=== PATIENT | female | born 1995 | race African-American/Black ===

== ENCOUNTER 2017-09-09 17:43 | Emergency (ER) | payer OTHER, MEDICAID ==
[~2017-09-09] VITALS: Ht 160 cm; Wt 56.7 kg
[2017-09-09] MEDS ORDERED: PROZAC20 MG PO (17:57)
[2017-09-09 18:46] VITALS: BP 120/85
== END 2017-09-09 18:49 | disposition home or self-care (01) ==
LOC: M.ERS 17:43
DX: G89.18 Other acute postprocedural pain (principal); K08.89 Other specified disorders of teeth and supporting structures; K08.409 Partial loss of teeth, unspecified cause, unspecified class

== ENCOUNTER 2017-12-01 13:03 | Emergency (ER) | payer MEDICAID ==
[~2017-12-01] VITALS: Ht 160 cm; Wt 58.1 kg
[~2017-12-01 13:03] MED LIST: PROZAC20 MG PO
[2017-12-01] MEDS ORDERED: TRILEPTAL150 MG PO (13:19)
[2017-12-01 13:29] LABS: URINE BILIRUBIN NEGATIVE (Negative); URINE BLOOD NEGATIVE (Negative); URINE CLARITY CLEAR; URINE COLOR YELLOW; URINE GLUCOSE-RANDOM NEGATIVE (Negative); URINE KETONES NEGATIVE (Negative); URINE LEUKOCYTES-REFLEX NEGATIVE (Negative); URINE NITRITE-REFLEX NEGATIVE (Negative); URINE PROTEIN TRACE (Negative); URINE SPECIFIC GRAVITY 1.025 (1.005-1.030); URINE UROBILINOGEN 0.2 E.U./dl (0.2-1.0)
[2017-12-01] MEDS ORDERED: FLAGYL500 MG PO (13:54)
[2017-12-01 14:10] VITALS: BP 111/73
== END 2017-12-01 14:10 | disposition home or self-care (01) ==
LOC: M.ERS 13:03
PROVIDERS: Nurse Practitioner Family
DX: Z20.2 Contact with and (suspected) exposure to infections with a predominantly sexual mode of transmission (principal); N76.0 Acute vaginitis; B96.89 Other specified bacterial agents as the cause of diseases classified elsewhere; F32.9 Major depressive disorder, single episode, unspecified; F17.210 Nicotine dependence, cigarettes, uncomplicated

== ENCOUNTER 2018-01-15 16:25 | Emergency (ER) | payer OTHER, MEDICAID ==
[~2018-01-15] VITALS: Ht 165.1 cm; Wt 56.7 kg
[~2018-01-15 16:25] MED LIST changes: +FLAGYL500 MG PO; +TRILEPTAL150 MG PO
[2018-01-15 16:35] VITALS: BP 126/75
[2018-01-15] MEDS ORDERED: TRIAMCINOLONE A80 G2 TOP (16:57)
[2018-01-15] MEDS ORDERED: VISTARIL 25 MG25 M1 PO (16:57)
[2018-01-15] MEDS ORDERED: KEFLEX500 M1 PO (16:57)
== END 2018-01-15 17:08 | disposition home or self-care (01) ==
LOC: M.ERS 16:25
DX: L30.9 Dermatitis, unspecified (principal); L03.115 Cellulitis of right lower limb; F32.9 Major depressive disorder, single episode, unspecified

== ENCOUNTER 2018-02-21 13:51 | Emergency (ER) | payer OTHER, MEDICAID ==
[~2018-02-21] VITALS: Ht 160 cm; Wt 59.0 kg
[~2018-02-21 13:51] MED LIST changes: +KEFLEX500 M1 PO; +TRIAMCINOLONE A80 G2 TOP; +VISTARIL 25 MG25 M1 PO
[2018-02-21 15:10] LABS: ABSOLUTE EOSINOPHILS 0.5 thou/uL (0.0-0.7); ABSOLUTE LYMPHOCYTES 1.8 thou/uL (0.8-5.3); ABSOLUTE MONOCYTES 0.8 thou/uL (0.0-1.2); ABSOLUTE NEUTROPHILS 5.4 thou/uL (1.6-8.1); BASOPHILS 0.4 %; EOSINOPHILS 6.4 %; HEMATOCRIT 37.8 % (37.0-47.0); HEMOGLOBIN 12.7 gm/dL (12.0-15.0); LYMPHOCYTES 21.1 %; MCH 29.3 pg (26.0-34.0); MCHC 33.6 g/dL (28.0-37.0); MCV 87.2 fL (80.0-100.0); MONOCYTES 8.9 %; MPV 8.3 fl. (7.2-11.1); NUCLEATED RBCS 0 /100WBC; PLATELET COUNT* 325 thou/uL (150-400); POLYS 63.2 %; RBC 4.33 mil/uL (4.20-5.00); RDW-CV 13.2 % (10.5-14.5); WBC 8.5 thou/uL (4.0-11.0)
[2018-02-21 15:17] LABS: CALCIUM 9.3 mg/dL (8.5-10.1); CREATININE 0.7 mg/dL (0.6-1.3); POTASSIUM 3.6 mmol/L (3.5-5.1)
[2018-02-21 15:23] LABS: URINE BILIRUBIN NEGATIVE (Negative); URINE BLOOD NEGATIVE (Negative); URINE CLARITY CLEAR; URINE COLOR YELLOW; URINE GLUCOSE-RANDOM NEGATIVE (Negative); URINE KETONES NEGATIVE (Negative); URINE LEUKOCYTES-REFLEX NEGATIVE (Negative); URINE NITRITE-REFLEX NEGATIVE (Negative); URINE PROTEIN NEGATIVE (Negative); URINE SPECIFIC GRAVITY >= 1.030 (1.005-1.030); URINE UROBILINOGEN 0.2 E.U./dl (0.2-1.0)
[2018-02-21 15:24] LABS: ALBUMIN 4.1 g/dL (3.4-5.0); TOTAL BILIRUBIN 0.4 mg/dL (<0.1-1.0); TOTAL PROTEIN 8.2 g/dL (6.4-8.2)
[2018-02-21] MEDS ORDERED: ELIMITE60 GM TOP (16:06)
[2018-02-21] MEDS ORDERED: STROMECTOL3 MG PO (16:06)
[2018-02-21 16:14] LABS: ESR (SEDRATE) 0 mm/hr (0-20)
[2018-02-21 16:17] VITALS: BP 136/77
== END 2018-02-21 16:18 | disposition home or self-care (01) ==
LOC: M.ERS 13:51
PROVIDERS: Nurse Practitioner Family
DX: B86 Scabies (principal); R06.00 Dyspnea, unspecified; R60.9 Edema, unspecified; F32.9 Major depressive disorder, single episode, unspecified; Z91.018 Allergy to other foods

== ENCOUNTER 2018-03-01 09:02 | Emergency (ER) | payer OTHER, MEDICAID ==
[~2018-03-01] VITALS: Ht 160 cm; Wt 57.6 kg
[~2018-03-01 09:02] MED LIST changes: +ELIMITE60 GM TOP; +STROMECTOL3 MG PO
[2018-03-01] MEDS ORDERED: PERMETHRIN1 GM TOP (09:45)
[2018-03-01] MEDS ORDERED: DIPHENHIST50 MG PO (09:45)
[2018-03-01 09:56] VITALS: BP 123/74
== END 2018-03-01 10:56 | disposition home or self-care (01) ==
LOC: M.ERS 09:02
DX: B86 Scabies (principal); F32.9 Major depressive disorder, single episode, unspecified

== ENCOUNTER 2018-08-31 13:56 | Emergency (ER) | payer OTHER, MEDICAID ==
[~2018-08-31] VITALS: Ht 157.5 cm; Wt 68.0 kg
[~2018-08-31 13:56] MED LIST changes: +DIPHENHIST50 MG PO; +PERMETHRIN1 GM TOP
[2018-08-31 15:37] LABS: ABSOLUTE EOSINOPHILS 0.1 thou/uL (0.0-0.7); ABSOLUTE LYMPHOCYTES 2.2 thou/uL (0.8-5.3); ABSOLUTE MONOCYTES 0.4 thou/uL (0.0-1.2); ABSOLUTE NEUTROPHILS 3.7 thou/uL (1.6-8.1); BASOPHILS 0.6 %; EOSINOPHILS 1.2 %; HEMATOCRIT 38.5 % (37.0-47.0); LYMPHOCYTES 34.2 %; MCH 30.1 pg (26.0-34.0); MCHC 33.9 g/dL (28.0-37.0); MCV 88.8 fL (80.0-100.0); MONOCYTES 6.2 %; MPV 8.5 fl. (7.2-11.1); NUCLEATED RBCS 0 /100WBC; PLATELET COUNT* 300 thou/uL (150-400); POLYS 57.8 %; RBC 4.33 mil/uL (4.20-5.00); RDW-CV 12.7 % (10.5-14.5); WBC 6.3 thou/uL (4.0-11.0)
[2018-08-31 15:41] LABS: CALCIUM 9.1 mg/dL (8.5-10.1); CREATININE 0.7 mg/dL (0.6-1.3); POTASSIUM 3.8 mmol/L (3.5-5.1)
[2018-08-31 15:46] LABS: ALBUMIN 4.5 g/dL (3.4-5.0); TOTAL BILIRUBIN 0.4 mg/dL (<0.1-1.0); TOTAL PROTEIN 8.6 g/dL (6.4-8.2)
[2018-08-31 15:50] LABS: URINE BILIRUBIN NEGATIVE (Negative); URINE BLOOD 1+ (Negative); URINE CLARITY CLEAR; URINE COLOR YELLOW; URINE GLUCOSE-RANDOM NEGATIVE (Negative); URINE KETONES NEGATIVE (Negative); URINE LEUKOCYTES-REFLEX NEGATIVE (Negative); URINE NITRITE-REFLEX NEGATIVE (Negative); URINE PROTEIN NEGATIVE (Negative); URINE UROBILINOGEN 0.2 E.U./dl (0.2-1.0)
[2018-08-31 15:58] LABS: AMP/METHAMP Negative (Negative); BARBITURATES Negative (Negative); BENZODIAZEPINES Negative (Negative); COCAINE Negative (Negative); METHADONE Negative (Negative); OPIATES Negative (Negative); PCP Negative (Negative); THC POSITIVE (Negative)
[2018-08-31 15:59] LABS: MUCUS None Seen strn/LPF (None Seen); SQUAMOUS >10 Many /LPF (0-3)
[2018-08-31 16:00] LABS: CASTS None Seen /LPF (None Seen); CRYSTALS None Seen /LPF (None Seen); URINE RBC 0-2 Rare /HPF (0-2); URINE WBC-REFLEX 0-5 Rare /HPF (0-5)
[2018-08-31] MEDS ORDERED: KEFLEX500 M1 PO (16:20)
[2018-08-31] MEDS ORDERED: NABUMETONE 750750 M1 PO (16:21)
[2018-08-31 16:48] VITALS: BP 143/98
== END 2018-08-31 16:49 | disposition home or self-care (01) ==
LOC: M.ERS 13:56
PROVIDERS: Nurse Practitioner Family
DX: K08.89 Other specified disorders of teeth and supporting structures (principal); R56.9 Unspecified convulsions; F32.9 Major depressive disorder, single episode, unspecified; Z86.2 Personal history of diseases of the blood and blood-forming organs and certain disorders involving the immune mechanism

== ENCOUNTER 2020-10-23 14:20 | Emergency (ER) | payer OTHER, MEDICAID ==
[~2020-10-23] VITALS: Ht 160 cm; Wt 65.8 kg
[~2020-10-23 14:20] MED LIST changes: +NABUMETONE 750750 M1 PO
[2020-10-23 14:58] LABS: URINE BLOOD 3+ (Negative); URINE CLARITY CLEAR; URINE COLOR BROWN; URINE GLUCOSE-RANDOM NEGATIVE (Negative); URINE KETONES 1+ (Negative); URINE LEUKOCYTES-REFLEX NEGATIVE (Negative); URINE NITRITE-REFLEX NEGATIVE (Negative); URINE PROTEIN 1+ (Negative); URINE SPECIFIC GRAVITY >= 1.030 (1.005-1.030); URINE UROBILINOGEN 0.2 E.U./dl (0.2-1.0)
[2020-10-23 15:00] LABS: ICTOTEST (BILI CONFIRMATORY) Negative (Negative); URINE BILIRUBIN 1+ (Negative)
[2020-10-23 15:07] LABS: BACTERIA-REFLEX 1-9 Few /HPF (None Seen); CASTS None Seen /LPF (None Seen); CRYSTALS None Seen /LPF (None Seen); MUCUS >6 Heavy strn/LPF (None Seen); SQUAMOUS 0-3 Few /LPF (0-3); URINE RBC 3-10 Few /HPF (0-2); URINE WBC-REFLEX None Seen /HPF (0-5)
[2020-10-23 15:08] LABS: AMORPHOUS URATES Many /LPF (None Seen)
[2020-10-23] MEDS ORDERED: FLAGYL500 M1 PO (15:22)
[2020-10-23 15:39] VITALS: BP 129/69
== END 2020-10-23 15:40 | disposition home or self-care (01) ==
LOC: M.ERS 14:20
PROVIDERS: Nurse Practitioner Family
DX: N76.0 Acute vaginitis (principal); B96.89 Other specified bacterial agents as the cause of diseases classified elsewhere; N93.8 Other specified abnormal uterine and vaginal bleeding; F32.9 Major depressive disorder, single episode, unspecified

== ENCOUNTER 2020-12-26 06:12 | Emergency (ER) | payer OTHER, MEDICAID ==
[~2020-12-26] VITALS: Ht 160 cm; Wt 68.0 kg
[~2020-12-26 06:12] MED LIST changes: +FLAGYL500 M1 PO
[2020-12-26 06:36] LABS: URINE BILIRUBIN NEGATIVE (Negative); URINE BLOOD NEGATIVE (Negative); URINE CLARITY CLEAR; URINE COLOR YELLOW; URINE GLUCOSE-RANDOM NEGATIVE (Negative); URINE KETONES NEGATIVE (Negative); URINE LEUKOCYTES-REFLEX NEGATIVE (Negative); URINE NITRITE-REFLEX NEGATIVE (Negative); URINE PROTEIN NEGATIVE (Negative); URINE SPECIFIC GRAVITY >= 1.030 (1.005-1.030); URINE UROBILINOGEN 0.2 E.U./dl (0.2-1.0)
[2020-12-26 08:07] VITALS: BP 126/80
== END 2020-12-26 08:08 | disposition home or self-care (01) ==
LOC: M.ERS 06:12
PROVIDERS: Personal Emergency Response Attendant
DX: Z11.3 Encounter for screening for infections with a predominantly sexual mode of transmission (principal); F12.90 Cannabis use, unspecified, uncomplicated; Z71.1 Person with feared health complaint in whom no diagnosis is made